=== PATIENT | male | born 1970 | race Caucasian/White ===

== ENCOUNTER 2021-07-02 12:08 | Outpatient (CLI) | payer OTHER, SELFPAY ==
--- NOTE | ~2021-07-02 | XR_ITS ---
EXAMINATION: XR abdomen/kub 1V EXAM DATE: 07/02/2021 12:27 INDICATION: R31.9 - Hematuria, unspecified TECHNIQUE: Frontal projection of the upper abdomen, frontal projection lower abdomen/pelvis for inter pretation. There is no prior study for comparison. FINDINGS: There is expected amount of colonic stool and gas. No small bowel dilation, nonobstructiv e bowel gas pattern. Left pelvic calcifications likely phleboliths. There is no organomegaly suspe cted. Right greater trochanteric bone island. IMPRESSION: Unremarkable abdomen x-ray exam. Reviewed, dictated and finalized at location B.
--- NOTE | ~2021-07-02 | US_ITS ---
EXAMINATION: US renal BI EXAM DATE: 07/02/2021 12:42 INDICATION: R31.9 - Hematuria, unspecified. TECHNIQUE: Multiple grayscale and Doppler images of the kidneys were obtained (by a technologist who performed the scan) and subsequently reviewed. There is no prior study for comparison. FINDINGS: Right kidney: There is normal contour and echogenicity. It measures 12.9 x 6.6 x 5.8 centimeters. T here are no focal renal lesions identified. There is no hydronephrosis. Left kidney: There is normal contour and echogenicity. It measures 11.5 x 4.6 x 5.9 centimeters. Th ere are no focal renal lesions identified. There is no hydronephrosis. Bladder unremarkable. IMPRESSION: 1. Sonographically unremarkable kidneys. If symptoms persist, CT urogram could be considered. Reviewed, dictated and finalized at location B.
[2021-07-02 12:53] LABS: Basophils Absolute Auto 0.1 K/mm3 (0.0-0.1); Basophils Percent Auto 0.9 % (0.2-1.2); Eosinophils Absolute Auto 0.5 K/mm3 (0-0.3); Eosinophils Percent Auto 5.8 % (0-4.4); Hematocrit 48.2 % (42.0-52.0); Hemoglobin 15.9 g/dL (14.0-18.0); Immature Granulocyte Absolute 0.02 K/mm3 (0.00-0.031); Immature Granulocyte Percent A 0.2 % (0-0.5); Lymphocytes Percent Auto 25.7 % (18.3-44.2); Mean Corpuscular Hemoglobin 31.2 pg (26-34); Mean Corpuscular Volume 94.5 fl (80-100); Mean Platelet Volume 9.4 fl (7.4-10.4); Monocytes Absolute Auto 0.8 K/mm3 (0.1-0.6); Monocytes Percent Auto 8.4 % (2.6-8.5); Neutrophils Absolute Auto 5.3 K/mm3 (1.3-6.7); Platelet Count Result 297 k/mm3 (150-375); Red Cell Distribution Width 12.5 % (11.5-14.5)
[2021-07-02 13:04] LABS: Anion Gap 9 mmol/L (8-16); Blood Urea Nitrogen 16 mg/dL (9-20); Calcium 9.5 mg/dL (8.4-10.2); Carbon Dioxide 27 mmol/L (22-30); Chloride 103 mmol/L (98-107); Estimated Glomerular Filt Rate > 60; Glucose 103 mg/dL (65-110); Potassium 4.2 mmol/L (3.4-5.0); Sodium 139 mmol/L (137-145)
== END 2021-07-02 12:09 | disposition home or self-care (01) ==
PROVIDERS: PCP Family Medicine; Visit Provider Nurse Practitioner Family
DX: R31.9 Hematuria, unspecified (principal)
CPT/HCPCS: 36415; 74018; 76775; 80048; 85025

== ENCOUNTER 2021-08-17 08:39 | Outpatient (CLI) | payer OTHER, SELFPAY ==
--- NOTE | ~2021-08-17 | CT_ITS ---
EXAMINATION: CT abdomen pelvis wo/w con EXAM DATE: 08/17/2021 09:31 INDICATION: Gross hematuria. TECHNIQUE: Spiral CT of the abdomen and pelvis was performed without contrast. The patient was then injected with small bolus intravenous Omnipaque 350, followed by delay of approximately 10 minutes to allow collecting system to opacify. A post contrast scan abdomen and pelvis was performed during inj ection of remaining contrast. A total of 130 cc intravenous contrast was administered. The dose-demetri th product (DLP) for this examination was 1432.20 mGy-cm. The exposure was tailored according to pat ient size (auto mA exposure control), and iterative reconstruction (ASIR) was used as additional dose reduction technique. There is no prior study for comparison. FINDINGS: There is no hydronephrosis or nephrolithiasis. There is abnormal appearance to the left renal pelvis with absence of distention, thick appearing wall. Appearance is suspicious for transitional cell canc er. Additionally, there is less enhancement to the midpole lateral cortex surrounding a 1.2 cm cyst w ithout any obvious explanation, but potentially an obstructed calyx could cause this subtle finding. The bladder is unremarkable. Mild prostatomegaly. There is mild retroperitoneal lymphadenopathy, with a right lower retroperitoneal node measuring 1.6 x 1.0 cm, other smaller nodes which also have hazy fat stranding surrounding these. These could be re active but metastatic disease or lymphoma also possible. The liver, spleen, adrenal glands and pancreas are unremarkable. Gallbladder is unremarkable. No bi liary obstruction. The appendix is normal. The stomach and small bowel are unremarkable. There is expected amount of colonic stool. No free intraperitoneal gas. The heart is normal in size. Ther e are no pericardial or pleural effusions. The lung bases are unremarkable. Small right femoral int ertrochanteric sclerotic focus probably bone island. IMPRESSION: 1. Abnormal left renal pelvis, calyces most likely transitional cell cancer. 2. Mild retroperitoneal lymphadenopathy, possible metastatic disease or lymphoma. 3. Mild prostatomegaly. I left message for Mauri Sprague MD with [facility] at 08/17/2021 11:54 CDT, asked him to review this report. Reviewed, dictated and finalized at location B. IMPRESSION: 1. Abnormal left renal pelvis, calyces most likely transitional cell cancer. 2. Mild retroperitoneal lymphadenopathy, possible metastatic disease or lympho ma. 3. Mild prostatomegaly. I left message for Mauri Sprague MD with [facility] at 08/17/2021 11:54 CDT , asked him to review this report.
--- NOTE | ~2021-08-17 | XR_ITS ---
EXAMINATION: XR abdomen/kub 1V EXAM DATE: 08/17/2021 09:35 INDICATION: gross hematuria. Abnormal left renal pelvis on CT. TECHNIQUE: Frontal projection(s) of the abdomen for interpretation. Comparison is made to prior exami nation from 07/02/2021. FINDINGS: There is constricted appearance to the left renal pelvis compared to the contralateral cristian e which is nicely distended with contrast. There is mild left caliectasis. Appearance suspicious for left renal pelvis transitional cell cancer. Nonobstructive bowel gas pattern. Bladder is unremarkable . Macrodantin IMPRESSION: Poorly distended left renal pelvis with mild caliectasis, suspicious for transitional ce ll cancer. Reviewed, dictated and finalized at location B. IMPRESSION: Poorly distended left renal pelvis with mild caliectasis, suspicio us for transitional cell cancer.
== END 2021-08-17 08:40 | disposition home or self-care (01) ==
LOC: ANHIMG 08:44
PROVIDERS: PCP Nurse Practitioner Family; Visit Provider Urology
DX: R31.0 Gross hematuria (principal); N28.89 Other specified disorders of kidney and ureter; R59.0 Localized enlarged lymph nodes; N40.0 Benign prostatic hyperplasia without lower urinary tract symptoms
CPT/HCPCS: 74018; 74178; Q9967

== ENCOUNTER 2021-08-24 10:29 | Outpatient (CLI) | payer OTHER, SELFPAY ==
[2021-08-24 11:05] LABS: Prothrombin Time 12.6 Seconds (11.1-14.7)
[2021-08-24 11:06] LABS: Partial Thromboplastin Time 28.1 SECONDS (22.3-36.8)
== END 2021-08-24 10:30 | disposition home or self-care (01) ==
LOC: ANHSURGERY 10:33
PROVIDERS: PCP Nurse Practitioner Family; Visit Provider Urology
DX: Z01.812 Encounter for preprocedural laboratory examination (principal); R31.9 Hematuria, unspecified
CPT/HCPCS: 36415; 85610; 85730; 87086

== ENCOUNTER 2021-08-28 01:50 | Day surgery (SDC) | payer OTHER, SELFPAY ==
[2021-08-24 08:16] VITALS: BMI 24.3
--- NOTE | 2021-08-24 08:24 | PC.NURSE ---
Report to the Outpatient Waiting Room, entrance under the green pavilion located off [facility], at time 1100 on date 08/28/21. OR Time: 1:00. - You and your visitor will be asked a series of questions to screen for COVID 19 for your protection. - A mask is required within the hospital. - Only one visitor is allowed at this time. Patient visitors will be guided where to wait when not with patient. Preoperative COVID Testing Requirements: No COVID Test needed if: (proof is required; if not received patient will have Rapid Test prior to entry) - Patient has received COVID Vaccine at least 14 days prior to procedure date or - Patient has positive COVID test result within last 90 days of surgery date. COVID Test needed if above criteria is not met If not COVID vaccinated a COVID test must be conducted within 72 hours of surgery and patient is asked to isolate self from time of testing until procedure. You will go to the [facility] for your COVID testing. The [facility] is located at the corner of [address] [facility]. You will only be called if COVID results are positive and your surgeon may reschedule your elective surgery date. Patients may have clear liquids (water, carbonated beverages, clear teas, apple juice) until 3 hours prior to surgery with a maximum of 20 ounces. - No food from midnight until time of surgery - Infants may have breast milk until 4 hours before surgery, formula 6 hours prior to surgery. - Children will be allowed to drink immediately following surgery. If applicable, please bring a bottle or sippy cup to assist with drinking. Juice, water, soda, and popsicles are readily available. For infants on formula, please bring formula the day of surgery. Pacifiers are allowed. Take the following medications with a SIP of water the morning of surgery: N/A Medications to discontinue per physician N/A Date to take last dose N/A Please no make-up, nail egyptian, hairspray, perfume, deodorant, or body powder the day of surgery. No jewelry (including any body piercings) or valuables the day of surgery, leave them at home. Please take a shower or bath the night before, or the morning of, surgery with an antibacterial soap. Wear comfortable, loose fitting clothing. Children are encouraged to wear pajamas. - Jewelry must be removed prior to entering the operating room. Rings and piercings that are not removed may be cut off. - The hospital will not accept responsibility for valuables. - Please leave all valuables, including medications, at home the day of surgery. If you are going home after surgery, a licensed package delivery driver must drive you home. - NO public transportation without another adult. - We recommend that an adult stay with you for 24 hours following discharge. - We also recommend that you do not drive, make important decision, drink alcoholic beverages, or take any drugs that were not prescribed by your health care provider for at least 24 hours after your discharge time. For Pediatric surgeries, we recommend two adults accompany the child home (only one inside the building at this time). Follow any additional instructions given to you from your surgeon. Telephone instructions given to KATHY GOMEZ and asked if any additional questions and then verbalized understanding. Patient advised to call surgeon office or pre surgery nurse liaison [phone] if any additional questions.
[2021-08-28] VITALS (9 sets, daily range): BP systolic 95–125; BP diastolic 52–79; PULSE 41–71; RESP 10–18; TEMP 36.4; O2SAT 94–100
--- NOTE | ~2021-08-28 | XR_ITS ---
EXAMINATION: XR retrograde pyelo w/stent LT DATE: 08/28/2021 12:47 INDICATION: Left internal ureteral stent placement TECHNIQUE: Fluoroscopic images from a left internal ureteral stent placement are submitted for review . 57 seconds of fluoroscopy time. 6 fluoroscopic images. FINDINGS: There is a left double-J internal ureteral stent projecting in expected position, with proximal Hudgins loop at the level of the renal pelvis and distal loop in the pelvis within the bladder lumen. IMPRESSION: 1. Left internal ureteral stent placement. Please refer to real-time procedural findings for detail s. Reviewed, dictated and finalized at location A. [employer] ASSISTANCE ASSOCIATE IMPRESSION: 1. Left internal ureteral stent placement. Please refer to real-time procedur al findings for details.
--- NOTE | 2021-08-28 10:39 | WPDHPUPDATE1 ---
History and Physical Update Update Date/Time: 08/28/21 10:39 History and Physical has been reviewed, including an updated exam of the patient. There are NO changes in the patient's condition. Risks, benefits, and alternatives have been discussed and questions answered. Patient agrees to proceed with procedure. Proceed with cystoscopy, left retrograde pyelogram, left ureteroscopy with possible biopsy, and possible transurethral incision of prostate
[2021-08-28] MEDS: LACTATED RINGERS 1,000 ML 30 ML IV CONT ×2 (11:06→12:47)
--- NOTE | 2021-08-28 11:45 | P.PNAN_ITS ---
Anes - Initial Pre Proc Eval Procedure: Operation Date: 08/28/21 13:00 Proposed Procedures p Cystoscopy, Left Retrograde Pyelogram, Left Ureteroscopy, Possible Biopsy - Mauri Sprague MD s Trans Urethral Incision of Prostate - Mauri Sprague MD Date/Time: 08/28/21 11:45 Surgeon: Mauri Sprague MD Pre Op Diagnosis: gross LAD, renal lesion, hematuria Patient Data Age: 51 Gender: M Height: 1.91 m Weight: 85.8 kg Last Vital Signs Temp 36.4 C 08/28/21 10:42 Pulse 71 08/28/21 10:42 Resp 18 08/28/21 10:42 BP 125/79 08/28/21 10:42 Pulse Ox 98 08/28/21 10:42 Allergies Allergy/AdvReac Type Severity Reaction Status Date / Time Penicillins Allergy Unknown Rash Verified 08/28/21 11:15 Home Medications Medication Instructions Recorded Confirmed Type No Home Medications 12/08/20 08/28/21 History Patient hx anesthesia problems: none Family hx anesthesia problems: none Results Review: All pre-operative results and documents have been reviewed as part of the pre-operative evaluation. [facility] [place] Past Medical History Medical History BMI 24.0-24.9, adult Surgical History Surgical History (Updated 08/28/21 @ 11:45 by Efra Aleman MD) H/O wisdom tooth extraction Hx of tonsillectomy Family History Family History Mother Family history of diabetes mellitus in first degree relative Family history of renal cell carcinoma Diabetes mellitus Dementia Father No problems noted. Sibling No problems noted. 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 Informed Consent: The patient's anesthetic plan and its attendant risks and benefits were discussed with the patient/family/POA. Questions were solicited and answers provided to the satisfaction of the patient/family/POA.
[2021-08-28] MEDS: ceFAZolin 2 GM/D5W 50 ML 2 GM/50 ML BAG IVPB (11:58)
[2021-08-28] MEDS: LIDOCAINE HCL 2% GEL UROJET 10 ML PKG MUCOUS MEM (12:38)
--- NOTE | 2021-08-28 12:44 | W.PM.PROC2 ---
Procedure Note - Detailed Date of Procedure 08/28/21 Pre-op Diagnosis gross LAD, renal lesion, hematuria Post-op Diagnosis same Procedure Performed Cystoscopy, left retrograde pyelogram, left ureteroscopy with biopsy, left ureteral stent placement Surgeon Mauri Sprague MD Anesthesia general Findings Diffuse involvement of the left renal pelvis of friable tissue consistent with transitional cell carcinoma. Description of Procedure Patient is taken to the operative suite and correctly identified. Once anesthesia was obtained he was placed in the low-lying dorsal lithotomy position and prepped and draped usual sterile fashion. Twenty-two [place] scope inserted into the bladder. There is no tumors noted. The prostate is somewhat enlarged. 1+ trabeculation present. Both ureteral orifices normal anatomic position. Again no tumors in the bladder. The left ureteral orifice was cannulated with a guidewire. We could not place a 6 ureteral scope into the orifice without using a an access sheath. Ureteral access sheath was placed and the flexible ureteroscope was then inserted all the way up to the kidney. Patient was noted to have friable tissue at the UPJ area and renal pelvis. It is very friable tissue and did have a papillary appearance of a transitional cell carcinoma. We tend to take a biopsy of this tissue but it is very friable and the adequacy of the specimen is unknown at this time. Pyelogram was then performed and again there was this filling defect consistent with the involvement of the renal pelvis. 4.8 [place] contour stent was then placed with the proximal coiled in the renal pelvis and the distal end in the bladder. 2% viscous lidocaine was inserted urethra patient is taken recovery stable condition. Will have him see Dr. Mora this regarding discussion of possibly new adjuvant therapy verses nephro ureterectomy and adjuvant therapy postoperatively given the CT findings. Drains Yes Packing No Pathology yes Complications No immediate complications Condition stable Disposition PACU
[2021-08-28] MEDS: oxyCODONE HCL (*CRX) 5 MG TAB IR PO (13:52)
[2021-08-28] MEDS: GLYCOPYRROLATE INJ (*SP) 0.2 MG/ML VIAL IV PUSH (15:00)
--- NOTE | 2021-08-28 15:10 | SUR.PHASEII ---
1500 - pt's heart rate 36-41. Dr. Aleman at bedside administering medication. pt's heart rate to 61 beats per minute
== END 2021-08-28 15:34 | disposition home or self-care (01) ==
PROVIDERS: PCP Nurse Practitioner Family; Visit Provider Urology
PROC: (CPT 52352; principal; 2021-08-28 13:00)
DX: D41.12 Neoplasm of uncertain behavior of left renal pelvis (principal); R31.9 Hematuria, unspecified
CPT/HCPCS: 52332; 52354; 36415; 74420; 85610; 85730; 87086; 88305; 88342; A9270; C1769; C1894; C2617; J0690; J2250; J2270; J2405; J2704; J7120; Q9966